=== PATIENT | male | born 1975 | race Caucasian/White ===

== ENCOUNTER → 2023-04-30 14:40 | Outpatient (BNVA) | payer BC, SELFPAY | PROVIDERS: Visit Provider Surgery | DX: R22.2 Localized swelling, mass and lump, trunk (principal) | CPT/HCPCS: 88307 ==

== ENCOUNTER → 2023-12-03 14:22 | Outpatient (BNVA) | payer OTHER, SELFPAY | PROVIDERS: Visit Provider Podiatrist Foot & Ankle Surgery | DX: M92.512 Juvenile osteochondrosis of proximal tibia, left leg; M19.172 Post-traumatic osteoarthritis, left ankle and foot | CPT/HCPCS: 73610 ==